=== PATIENT | female | born 1985 | race Caucasian/White ===

== ENCOUNTER 2022-05-19 20:25 | Emergency (ER) | payer BC, SELFPAY ==
[~2022-05-19 20:25] MED LIST: Iopamidol 300 61% 100 ML VIAL FS ONE
[2022-05-19] MEDS ORDERED: Ketorolac Tromethamine 30 MG/ML VIAL ONE (21:22)
== END 2022-05-19 23:05 | disposition home or self-care (01) ==
LOC: CSHERS 20:25
DX: K04.7 Periapical abscess without sinus (principal); K02.9 Dental caries, unspecified
CPT/HCPCS: 70491; 96374; J1885; Q9967

== ENCOUNTER 2024-12-09 21:00 | Emergency (ER) | payer BC ==
[2024-12-10] MEDS ORDERED: Ketorolac Tromethamine 30 MG (1 mL) VIAL ONE (00:24)
[2024-12-10] MEDS ORDERED: Acetaminophen 500 MG TAB ONE (00:24)
== END 2024-12-10 02:33 | disposition home or self-care (01) ==
LOC: CSHERS 21:00
DX: M25.512 Pain in left shoulder (principal)
CPT/HCPCS: 96372; 99283; J1885